=== PATIENT | female | born 1945 | race Caucasian/White ===

== ENCOUNTER 2018-05-15 21:06 | Inpatient (IN) | payer OTHER ==
[~2018-05-15] VITALS: Ht 154.9 cm; Wt 79.7 kg
[~2018-05-15 21:06] MED LIST: FAMOTIDINE PO; HYDROCODON-ACE1 EAC7 PO; MOBIC7.5 MG PO
[2018-05-15 21:08] VITALS: BP 126/74
[2018-05-15 21:44] LABS: ABSOLUTE NEUTROPHILS 7.9 thou/uL (1.4-8.2); BASOPHILS 0.9 % (0.0-2.0); EOSINOPHILS 3.5 % (0.0-3.0); HEMATOCRIT 38.6 % (37.0-47.0); LYMPHOCYTES 15.1 % (24.0-44.0); MCH 25.5 pg (26.0-34.0); MCHC 33.6 g/dL (28.0-37.0); MCV 75.8 fL (80.0-100.0); MONOCYTES 6.1 % (1.0-8.0); PLATELET COUNT 252 thou/uL (150-400); POLYS 74.4 % (36.0-66.0); RBC 5.09 mil/uL (4.20-5.00); RDW 13.7 % (10.5-14.5); WBC 10.6 thou/uL (4.0-11.0)
[2018-05-15 21:56] LABS: CALCIUM 9.5 mg/dL (8.5-10.1)
[2018-05-15] MEDS ORDERED: PRILOSEC 10MG C10 MG PO (22:05)
[2018-05-15] MEDS ORDERED: ATORVASTATIN CA40 MG PO (22:05)
[2018-05-15 22:08] LABS: TROPONIN-I 8.31 ng/mL (<0.06)
--- NOTE | 2018-05-15 22:10 | NUR ---
CRITICAL LAB TROPONIN=8.31 NOTIFIED PHYSICIAN
[2018-05-15] MEDS ORDERED: PAXIL10 MG PO (23:02)
[2018-05-15] MEDS ORDERED: CARDIZEM CD240 MG PO (23:02)
[2018-05-15] MEDS ORDERED: MYRBETRIQ50 MG PO (23:03)
[2018-05-15] MEDS ORDERED: NABUMETONE 750750 M1 PO (23:03)
[2018-05-15 23:07] VITALS: BP 108/73
[2018-05-15 23:20] VITALS: BP 108/73
[2018-05-15 23:50] VITALS: BP 112/75
[2018-05-16] VITALS: BP 112/75
[2018-05-16] MEDS ORDERED: ALIGN4 MG PO (00:12)
[2018-05-16 04:36] VITALS: BP 93/51
[2018-05-16 04:40] LABS: HEMATOCRIT 36.6 % (37.0-47.0); HEMOGLOBIN 11.9 gm/dL (12.0-15.0); MCHC 32.6 g/dL (28.0-37.0); MCV 76.7 fL (80.0-100.0); RBC 4.78 mil/uL (4.20-5.00); RDW 13.6 % (10.5-14.5); WBC 5.8 thou/uL (4.0-11.0)
[2018-05-16 04:42] LABS: ANION GAP 10 mmol/L (7-16); BUN 25 mg/dL (7-18); CALCIUM 8.8 mg/dL (8.5-10.1); CHLORIDE 105 mmol/L (98-107); CO2 28 mmol/L (21-32); CREATININE 0.9 mg/dL (0.6-1.0); GLUCOSE 116 mg/dL (74-106); POTASSIUM 3.8 mmol/L (3.5-5.1); SODIUM 143 mmol/L (136-145)
[2018-05-16 04:46] LABS: PROTIME 10.8 Seconds (9.3-11.4); SERUM ASSESSMENT Clear
[2018-05-16 04:51] LABS: CHOLESTEROL 181 mg/dL (<200); HDL CHOLESTEROL 43 mg/dL (>40); LDL CHOLESTEROL 108 mg/dL (<100); TC:HDL 4.2 Ratio (Not establshd); TRIGLYCERIDE 152 mg/dL (<150); VLDL 30 mg/dL (<40)
[2018-05-16 04:53] LABS: TROPONIN-I 4.79 ng/mL (<0.06)
[2018-05-16 05:55] VITALS: BP 93/51
[2018-05-16 07:25] VITALS: BP 109/64
--- NOTE | 2018-05-16 07:25 | NUR ---
23:45>ADMITTED FROM ED A 73 Y/F WITH NSTEMI. NITROGLYCERINE DRIP AT 1.5 ML/HR (5 MCG/MIN) INFUSING AT RIGHT AC AND HEPARIN DRIP AT 9.4 ML/HR (250 ML IN 25,000 HEPARIN) INFUSING AT RIGHT HAND, BOTH DRIP STARTED AT [facility]. STILL WITH CP AT 03/26. ADMITTING CARE DONE. ASSESSMENT DOCUMENTED. COORDINATED WIHT PROJECT DIRECTOR VIRI BECK REGARDING THE ORDERS. SHE SAID TO CONTINUE IT BASED ON CARDIO PROTOCOL. COORDINATED WITH PHARMACIST TAMIE REGARDING THE NITRO DRIP. ALL DRIPS WAS CHANGED PER POLICY AT SAME DOSE. COORDINATED WITH WILFRED ER NURSE IF WINONA SENT PAPER WORKS OR DOCS, I WAS TOLD NONE.
[2018-05-16 12:10] VITALS: BP 134/79
--- NOTE | 2018-05-16 14:21 | 2DMMODE ---
[facility] [address] [place] [address] 2 D/M-MODE ECHOCARDIOGRAM Name: CATHIE NELSON Room #: 218-P [facility]#: [id number] ������������� Admission: 05/15/18 ������������� Attend Phys: Jayjay Daniels MD Discharge: ��� ������������� ��� Date of : 47 Date of Service: 05/16/18 1421 �� Report #: [id number] �������� ��������������������������������������������[id number] THIS REPORT FOR: //name// APPROVED REPORT Study performed: 05/16/2018 10:16:57 EXAM: Comprehensive 2D, Doppler, and color-flow Echocardiogram Patient Location: In-Patient Room #: 218 Status: routine BSA: 1.78 HR: 75 bpm BP: 109/64 mmHg Rhythm: NSR Other Information Study Quality: Adequate Indications Echo Enhancing Agent Indication: Rule out thrombus Agent(s) / Amount(s) Used: Optison 2 cc 2D Dimensions IVSd: 12.18 (7-11mm) LVOT Diam: 17.38 (18-24mm) LVDd: 36.74 mm PWd: 11.95 (7-11mm) LVDs: 23.06 (25-40mm) Left Atrium: 34.06 (27-40mm) Aortic Root: 28.41 mm LV Single Plane 4CH: 41.87 % LV Single Plane 2CH: 32.98 % Volumes Left Atrial Volume (Systole) Single Plane 4CH: 25.27 mL Single Plane 2CH: 27.59 mL Aortic Valve AoV Peak Sam.: 1.43 m/s AO Peak Gr.: 8.25 mmHg LVOT Max P.72 mmHg LVOT Max V: 0.96 m/s BRIDGETTE Vmax: 1.60 cm2 [facility] [place] [address] 2 D/M-MODE ECHOCARDIOGRAM Name: CATHIE NELSON Room #: 218-P [facility]#: [id number] ������������� Admission: 05/15/18 ������������� Attend Phys: Jayjay Daniels MD Discharge: ��� ������������� ��� Date of : 47 Date of Service: 05/16/18 1421 �� Report #: [id number] �������� ��������������������������������������������[id number] Mitral Valve E/A Ratio: 0.7 MV Decel. Time: 255.40 ms MV E Max Sam.: 0.93 m/s MV A Sam.: 1.40 m/s MV PHT: 74.07 ms IVRT: 99.19 ms Pulmonary Valve PV Peak Sam.: 1.08 m/s PV Peak Gr.: 4.68 mmHg OH End Vmax: 1.24 m/s Pulmonary Vein P Vein S: 0.57 m/s P Vein A: 0.34 m/s P Vein D: 0.37 m/s P Vein A Dur.: 143.0 msec P Vein S/D Ratio: 1.54 Tricuspid Valve TR Peak Sam.: 2.70 m/s TR Peak Gr.: 29.25 mmHg Left Ventricle The left ventricle is normal size. Regional wall motion abnormalities are noted. Mild concentric left ventricular hypertrophy. Left ventricular systolic function is moderate to severely decreased with extensive hypokinesis of the anteroapical left ventricle. No evidence of LV thrombus EF 30-35% Right Ventricle The right ventricle is normal size. The right ventricular systolic function is normal. Atria The left atrium size is normal. The interatrial septum is intact with no evidence for an atrial septal defect. The right atrium size is normal. Aortic Valve The aortic valve is normal in structure. Trace aortic regurgitation. There is no aortic valvular stenosis. Mitral Valve The mitral valve is normal in structure. Mild mitral regurgitation. No evidence of mitral valve stenosis. [address] [address] 2 D/M-MODE ECHOCARDIOGRAM Name: LESLIECATHIE Room #: 218-P ADM IN M.R.#: [id number] ������������� Admission: 05/15/18 ������������� Attend Phys: Jayjay Daniels MD Discharge: ��� ������������� ��� Date of : 47 Date of Service: 05/16/18 1421 �� Report #: [id number] �������� ��������������������������������������������[id number] Tricuspid Valve The tricuspid valve is normal in structure. Mild tricuspid regurgitation. Estimated PAP is 35 nnHg. Pulmonic Valve The pulmonary valve is normal in structure. Mild pulmonic regurgitation. Great Vessels The aortic root is normal in size. The ascending aorta is normal in size. IVC is normal in size and collapses >50% with inspiration. Pericardium There is no pericardial effusion. <Conclusion> The left ventricle is normal size. Mild concentric left ventricular hypertrophy. Left ventricular systolic function is moderate to severely decreased with extensive hypokinesis of the anteroapical left ventricle. No evidence of LV thrombus EF 30-35% The aortic valve is normal in structure. Trace aortic regurgitation. There is no aortic valvular stenosis. The mitral valve is normal in structure. Mild mitral regurgitation. No evidence of mitral valve stenosis. There is no pericardial effusion. ��������������������������������������������� <ELECTRONICALLY SIGNED> ���������������������������������������� By: Kurt Clinton MD ��������������������������������������������� 05/16/18 1421 142 1421 Kurt Clinton MD /INF
[2018-05-16 20:10] VITALS: BP 117/61
--- NOTE | 2018-05-17 04:56 | NUR ---
ASSUMED PT CARE AT 1900 WITH BEDSIDE REPORT DONE, PT IS ALERT AND ORIENTED WITH NO SIGN OF DISTRESS NOTED IN PT. PT IS STABLE ON NITRO DRIP ANF HEPARIN DRIP, APPT COMPLETED. SCHEDULED MEDS ADMINISTERED TO PT. FAMILY AT BEDSIDE. PT IS STABLE. ASSESSMENT DOCUMENTED, PT IS STABLE ON THE HEART MONITOR. DENIES VSS STABLE, DENIES ANY NEEDS AT THIS TIME
[2018-05-17 05:23] VITALS: BP 95/53
[2018-05-17 05:35] LABS: GLYCOHEMOGLOBIN (HGB A1C) 5.9 % (4.8-5.6)
[2018-05-17 08:15] VITALS: BP 115/53
[2018-05-17 12:10] VITALS: BP 131/53
[2018-05-17 16:15] VITALS: BP 126/58
--- NOTE | 2018-05-17 19:32 | EKG ---
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: MOUSTAPHA : 1945 Requested By: Donnie Wolff Order Number: [id number] MD: Joshua Kuhn Measurements Intervals [place] Rate: 93 P: 57 FL: 188 QRS: -24 QRSD: 82 T: 84 QT: 369 QTc: 459 Interpretive Statements Sinus rhythm left atrial enlargement Leftward axis anteroseptal infarct, recent Compared to ECG 06/29/2002 11:52:11 Myocardial infarct finding now present Electronically Signed On 05-17-2018 19:32:18 BUZZSAW OPERATOR HELPER by Joshua Kuhn [email or web address] ��������������������������������������������� <ELECTRONICALLY SIGNED> ���������������������������������������� By: Joshua Kuhn MD ��������������������������������������������� 05/17/181931 41 41 Joshua Kuhn MD /EPI
--- NOTE | 2018-05-17 19:35 | EKG ---
[address] [address] ELECTROCARDIOGRAM REPORT Name: CATHIE NELSON Room #: 218-P ADM IN M.R.#: [id number] ������������������ Admission: 05/15/18 ������������������ Attend Phys: Jayjay Daniels MD Discharge: ������������������ Date of : 47 Report #: [id number] ����������������������������������������������������������������� [id number] THIS REPORT FOR: //name// [facility] Test Date: 2018-05-16 Test Time: 07:51:19 Pat Name: CATHIE NELSON Department: Room: 218 P Gender: F Information Technology Architect: KEO : 1945 Requested By: Shyann Last Order Number: [id number] MD: Joshua Kuhn Measurements Intervals [place] Rate: 71 P: 2 NH: 199 QRS: -23 QRSD: 78 T: 113 QT: 443 QTc: 482 Interpretive Statements Sinus rhythm Leftward axis Anteroseptal infarct, age indeterminate Baseline wander in lead(s) V5,V6 Compared to ECG 06/29/2002 11:52:11 No significant changes Electronically Signed On 05-17-2018 19:35:28 MATHEMATICIAN by Joshua Kuhn [email or web address] ��������������������������������������������� <ELECTRONICALLY SIGNED> ���������������������������������������� By: Joshua Kuhn MD ��������������������������������������������� 05/17/18 1935 0751 0751 Joshua Kuhn MD /EPI
--- NOTE | 2018-05-17 19:36 | NUR ---
ASSUMED PATIENT CARE THIS AM. PATIENT A&OX4. ROOM AIR. NO COMPLAINTS OF PAIN. TOLERATING DIET. FAMILY AT BEDSIDE. STEADY GAIT, UP TO BATHROOM. PLAN FOR CATH IN AM.
[2018-05-17 20:00] VITALS: BP 119/52
--- NOTE | 2018-05-17 20:10 | EKG ---
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 : 1945 Requested By: Di Ly Order Number: [id number] MD: Joshua Kuhn Measurements Intervals [place] Rate: 58 P: 35 SC: 226 QRS: -4 QRSD: 214 T: 182 QT: 542 QTc: 533 Interpretive Statements Sinus rhythm with prolonged SC interval Borderline Left atrial enlargement Anteroseptal infarct may be recent clinical correlation suggested Compared to ECG 06/29/2002 11:52:11 First degree AV block now present Electronically Signed On 05-17-2018 20:10:22 DIRECTOR OF MARKETING COMMUNICATIONS by Joshua Kuhn [email or web address] ��������������������������������������������� <ELECTRONICALLY SIGNED> ���������������������������������������� By: Joshua Kuhn MD ��������������������������������������������� 05/17/182009 0759 0759 Joshua Kuhn MD /EPI
--- NOTE | 2018-05-18 01:25 | NUR ---
ASSESSMENTS CHARTED. PT'S BLOOD PRESSURE ELEVATED AGAIN AT MIDNIGHT ASSESSMENT. DOSED CHARTED. PATIENT MOUTH BREATHING. REQUESTING WATER FREQUENTLY. PO MEDS CRUSHED IN [place]OGURT. PLAN OF CARE TO CONTINUE ASSESSMENTS.
--- NOTE | 2018-05-18 02:39 | NUR ---
ASSESSMENTS CHARTED. PATIENT RECEIVED NEW IV IN RIGHT HAND DUET TO BLEEDING. UP WITH ASSISTANCE. NPO SINCE MIDNIGHT FOR SUPERVISOR NETWORK CONTROL OPERATORS PROCEDURE IN MORNING. HEPARIN AND NITROGLYCERIN BOTH INFUSING IN SEPARATE IV ACCESSES.
[2018-05-18 04:45] VITALS: BP 106/53
[2018-05-18 07:42] LABS: CALCIUM 9.3 mg/dL (8.5-10.1); POTASSIUM 4.1 mmol/L (3.5-5.1)
[2018-05-18] MEDS ORDERED: TOPROL XL25 MG PO (08:09)
[2018-05-18] MEDS ORDERED: ASPIR 8181 MG PO (08:09)
[2018-05-18] MEDS ORDERED: LISINOPRIL10 MG PO (08:10)
[2018-05-18 08:15] VITALS: BP 113/60
--- NOTE | 2018-05-18 08:21 | CATHLAB ---
[facility] [address] [place] [address] INVASIVE PROCEDURE REPORT Name: NELSONCATHIE Room #: 218-P ADM IN .R.#: [id number] ������������� Admission: 05/15/18 ������������� Attend Phys: En Sims, Discharge: ��� ������������� ��� Date of : 47 Date of Service: 05/18/18 0820 �� Report #: [id number] �������� ��������������������������������������������[id number] THIS REPORT FOR: //name// APPROVED REPORT Study performed: 05/18/2018 07:10:33 Patient Details Patient Status: In-Patient Room #: The patient is a 73 year-old female Event Personnel Heath Purvis Nailing Machine Operator, Con Calvin RN, José Miguel Carter Mahmood, Amber Monitor, Susy Guzman RT(R)() Monitor Procedures Performed Art Access - R femoral artery* [id number] Initial Mod Sed Same Phys/QHP Gr5y [id number] Left Heart Cath w/or w/o Coronaries [id number] [facility] Hemostasis w/ Mynx Indication Chest pain Procedure Narrative The patient was brought urgently to the Cardiac Catheterization Laboratory and was prepped and draped in a sterile manner. The Right Groin^ was infiltrated with 1% Lidocaine subcutaneous anesthesia. A PINNACLE 6FR Sheath #[id number] sheath was inserted into the RFA^. Coronary angiography was performed using coronary diagnostic catheters. The right coronary system was accessed and visualized with a JR 4 catheter. The left coronary system was accessed and visualized with a JL 4 catheter. The left ventricle was accessed and visualized with a Pigtail catheter. Left ventricular/Aortic Valve gradient assessed via catheter pullback. Left ventriculogram was performed in HOWARD projection. Closure device was deployed with a 6 Fr Mynx. The patient tolerated the procedure well and there were no complications associated with the procedure. There was no hematoma. Intraoperative Conscious Sedation Sedation start time: 07:33 Case end Time: 07:49 Fentanyl 50 mcg Versed 1.5 mg Fluoro Time: 1.03 minutes [facility] [address] [place] [address] INVASIVE PROCEDURE REPORT Name: CATHIE NELSON Room #: 218-P [facility] IN .R.#: [id number] ������������� Admission: 05/15/18 ������������� Attend Phys: En Sims, Discharge: ��� ������������� ��� Date of : 47 Date of Service: 05/18/18 0820 �� Report #: [id number] �������� ��������������������������������������������[id number] Dose: DAP 2221.00 cGycm2 289 mGy Contrast Type and Amount: Visipaque 125 ml Coronary Angiography The patient's coronary anatomy is left dominant. Diagnostic Cath Left Main Normal left main LAD Normal left anterior descending Diagonal 1 Minimal plaquing at the origin of a moderate sized first diagonal branch Diagonal 2 Angiographically normal second diagonal branch Circumflex Large, dominant circumflex, angiographically normal OM1 Moderate size first marginal branch, normal L PDA Normal posterior descending branch Right Coronary Small, nondominant and angiographically normal right coronary Left Ventriculography The left ventricle is normal in size with abnormal contractility. The left ventricular ejection fraction is estimated to be 45%. Left ventricular wall motion abnormalities are present. There is 1+ mitral insufficiency. Apical hypokinesis and "ballooning" consistent with Takutsobu cardiomyopathy Hemodynamics The aortic pressure is 172/62 mmHg with a mean of 89 mmHg. The left ventricular pressure is 170/15 mmHg with a mean of mmHg. The left ventricular end diastolic pressure is 28 mmHg. Conclusion 1. Apical hypokinesis and ballooning consistent with Takotsubo cardiomyopathy EF 45% 2. Normal left main 3. Essentially normal coronary vasculature. Left coronary dominant circulation. Recommendations Cardiac Rehabilitation Referral Aggressive Medical Therapy ��������������������������������������������� <ELECTRONICALLY SIGNED> ���������������������������������������� By: Heath Purvis MD, FACC ��������������������������������������������� 05/18/18819 9 9 Heath Purvis MD, FACC /INF
--- NOTE | 2018-05-18 08:29 | EKG ---
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 Pickler: FAMILIA : 1945 Requested By: Di Ly Order Number: [id number] MD: Kurt Clinton Measurements Intervals [place] Rate: 61 P: 41 OH: 227 QRS: 65 QRSD: 122 T: 174 QT: 542 QTc: 546 Interpretive Statements Sinus rhythm Prolonged OH interval Left atrial enlargement Nonspecific intraventricular conduction delay Anteroseptal infarct, age indeterminate Lateral leads are also involved Diffuse anterior T wave inversion Compared to ECG 05/17/2018 07:59:27 Intraventricular conduction delay now present Myocardial infarct finding still present Electronically Signed On 05-18-2018 8:29:40 BMW SERVICE TECHNICIAN by Kurt Clinton [email or web address] ��������������������������������������������� <ELECTRONICALLY SIGNED> ���������������������������������������� By: Kurt Clinton MD ��������������������������������������������� 05/18/18 0829 0657 0657 Kurt Clinton MD /EPI
[2018-05-18 15:57] VITALS: BP 106/53
--- NOTE | 2018-05-18 16:55 | NUR ---
ASSUMED CARE AT O730. A&0X4. NO COMPLAINTS OF NAUSEA,OR CHEST PAIN. 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 AMBULATED TO WITH STEADY GAIT. BACK FROM CATH AT 0840 WITH RIGHT FEMORAL SITE CDI AND NO HEMATOMA. BEDREST TILL 1100. DISCHARGE ORDERS RECIEVED AND PATIENT EDUCATED ON SITE CARE. VITALS WNL, VOIDED WITHOUT DIFFICULTY AND DISCHARGED HOME WITH FAMILY.
== END 2018-05-18 18:06 | disposition home or self-care (01) | DRG 281 ==
LOC: ER 21:06 → EROBS 22:18 → 2N 22:18 → ENTRNSPT 05-18 16:44 → 2N 05-18 18:06
PROVIDERS: Emergency Medicine; Nurse Practitioner; Nurse Practitioner Family; ADMIT Internal Medicine
DX: I21.4 Non-ST elevation (NSTEMI) myocardial infarction (principal); I51.81 Takotsubo syndrome; I10 Essential (primary) hypertension; E78.5 Hyperlipidemia, unspecified; K21.9 Gastro-esophageal reflux disease without esophagitis; F32.9 Major depressive disorder, single episode, unspecified; Z85.038 Personal history of other malignant neoplasm of large intestine; Z87.891 Personal history of nicotine dependence; Z85.048 Personal history of other malignant neoplasm of rectum, rectosigmoid junction, and anus; Z79.899 Other long term (current) drug therapy; Z88.0 Allergy status to penicillin; Z82.49 Family history of ischemic heart disease and other diseases of the circulatory system; Z83.3 Family history of diabetes mellitus; Z80.1 Family history of malignant neoplasm of trachea, bronchus and lung
CPT/HCPCS: 10081

== ENCOUNTER → 2019-09-13 | Outpatient (CLI) | payer OTHER ==
[~2019-09-13] MED LIST changes: +ALIGN4 MG PO; +ASPIR 8181 MG PO; +ATORVASTATIN CA40 MG PO; +CARDIZEM CD240 MG PO; +LISINOPRIL10 MG PO; +MYRBETRIQ50 MG PO; +NABUMETONE 750750 M1 PO; +PAXIL10 MG PO; +PRILOSEC 10MG C10 MG PO; +TOPROL XL25 MG PO
== END ==
LOC: SJCVC 10:50
PROVIDERS: ATTEND Internal Medicine
DX: I51.81 Takotsubo syndrome (principal); I50.32 Chronic diastolic (congestive) heart failure; I10 Essential (primary) hypertension; E78.5 Hyperlipidemia, unspecified

== ENCOUNTER → 2020-07-17 | Outpatient (CLI) | payer OTHER | LOC: SJCVC 12:53 | PROVIDERS: ATTEND Internal Medicine | DX: I44.0 Atrioventricular block, first degree (principal); R00.1 Bradycardia, unspecified; I11.0 Hypertensive heart disease with heart failure; I50.32 Chronic diastolic (congestive) heart failure; E78.5 Hyperlipidemia, unspecified; K21.9 Gastro-esophageal reflux disease without esophagitis; Z79.899 Other long term (current) drug therapy; Z88.1 Allergy status to other antibiotic agents; Z88.0 Allergy status to penicillin; Z79.82 Long term (current) use of aspirin ==